=== PATIENT | female | born 1990 | race Caucasian/White ===

== ENCOUNTER → 2017-08-05 | Outpatient (CLI) | payer BC, MEDICAID ==
[~2017-08-05] MED LIST: ACHD5005 PO; ACHYD1T PO; CLC500CT PO; DCS100C PO; IBP600T1 PO; IBP800T PO; PREN1TAB14 PO
--- NOTE | 2017-08-05 16:08 | Diagnostic Imaging Report ---
INDICATION: survey. TECHNIQUE: Multiple real-time grayscale images were obtained over the gravid uterus. COMPARISON: None FINDINGS: heart rate is 135 beats per minute. The placenta is fundal and posterior. No placenta previa. Adequate amniotic fluid is seen. The lower uterine segments demonstrate closed cervix which appear to be approximately 4 cm in length. The maternal adnexa are obscured by bowel gas. The anatomy demonstrates unremarkable appearance of the posterior fossa, lateral ventricles, urinary bladder, two umbilical arteries, stomach, the upper spine. The mid and lower spine and the four-chamber view are not optimally visualized. No hydronephrosis or cystic renal masses seen in the level of the kidneys. Biometrical measurements are as follows: Biparietal 5.31 cm, age 22 weeks 1 days. Head circumference 19.43 cm, age 21 weeks 5 days. Abdominal circumference 16.42 cm, age 21 weeks 4 days. Femur length 3.63 cm, age 21 weeks 4 days. Sonographic estimate age: 21 weeks 6 days. Sonographic estimated date of delivery: 12-10-17. Estimated Weight: 431 gm (+/- 63 gm). LMP percentile: 22%. heart rate: 135 beats per minute. number: 1 of 1. IMPRESSION: Followup within 2 weeks is suggested to reevaluate the spine and four-chamber view, not well seen due to position. Dictated by: Dictated on workstation # [id number]
== END ==
LOC: RAD 10:42
PROVIDERS: ATTEND Obstetrics & Gynecology
DX: Z34.92 Encounter for supervision of normal pregnancy, unspecified, second trimester (principal); Z3A.21 21 weeks gestation of pregnancy
CPT/HCPCS: 76805

== ENCOUNTER → 2017-09-08 | Outpatient (CLI) | payer BC ==
--- NOTE | 2017-09-08 11:17 | Diagnostic Imaging Report ---
TECHNIQUE: Multiple real-time grayscale images were obtained over the gravid uterus. COMPARISON: None INDICATION: Anatomical survey. FINDINGS: There is a single living intrauterine in a cephalic presentation. There is a normal volume of amniotic fluid. Heart rate is 127 beats per minute and regular. Placenta is posterior. There is no previa. 4 chambered heart was visualized and normal. Spine was visualized and normal. IMPRESSION: Unremarkable limited ultrasound of a 26 week 6 day gestation. Biometrical measurements are as follows: Biparietal cm, age weeks days. Head circumference cm, age weeks days. Abdominal circumference cm, age weeks days. Femur length cm, age weeks days. Sonographic estimate age: weeks days. Sonographic estimated date of delivery: . Estimated Weight: gm (+/- gm). LMP percentile: %. heart rate: beats per minute. number: of . IMPRESSION: Dictated by: Dictated on workstation # [id number]
== END ==
LOC: RAD 10:18
PROVIDERS: ATTEND Obstetrics & Gynecology
DX: Z36.89 Encounter for other specified antenatal screening (principal); Z3A.26 26 weeks gestation of pregnancy
CPT/HCPCS: 76816

== ENCOUNTER → 2017-09-25 | Outpatient (CLI) | payer BC | LOC: RAD 14:39 | PROVIDERS: ATTEND Obstetrics & Gynecology | DX: Z53.8 Procedure and treatment not carried out for other reasons (principal) ==

== ENCOUNTER 2017-12-11 08:28 | Inpatient (IN) | payer BC, MEDICAID ==
[~2017-12-11] VITALS: Ht 160 cm; Wt 83.0 kg
[2017-12-11] VITALS (16 sets, daily range): BP systolic 102–138; BP diastolic 56–73
[2017-12-11 09:43] LABS: BILIRUBIN,URINE NEGATIVE (NEGATIVE); CLARITY,URINE CLEAR; COLOR,URINE YELLOW; GLUCOSE, URINE (UA) NEGATIVE (NEGATIVE); KETONES,URINE NEGATIVE (NEGATIVE); LEUKOCYTE ESTERASE ,URINE 2+ (NEGATIVE); NITRITE,URINE NEGATIVE (NEGATIVE); PH,URINE 6.5 (5-9); PROTEIN,URINE NEGATIVE (NEGATIVE); UROBILINOGEN,URINE NORMAL (NORMAL)
[2017-12-11 09:44] LABS: BASOPHILS % (AUTO) 0 % (0-10); EOSINOPHILS # (AUTO) 0.1 10^3/uL (0.0-0.3); EOSINOPHILS % (AUTO) 1 % (0-10); HEMATOCRIT 36 % (35-52); HEMOGLOBIN 12.1 G/DL (11.5-16.0); LYMPHOCYTES # (AUTO) 1.5 X 10^3 (1.0-4.0); LYMPHOCYTES % (AUTO) 16 % (12-44); MEAN CORPUSCULAR HEMOGLOBIN 27 PG (25-34); MEAN CORPUSCULAR HGB CONC 33 G/DL (32-36); MEAN CORPUSCULAR VOLUME 80 FL (80-99); MONOCYTES # (AUTO) 0.8 X 10^3 (0.0-1.0); MONOCYTES % (AUTO) 9 % (0-12); NEUTROPHILS % (AUTO) 74 % (42-75); PLATELET COUNT 170 10^3/uL (130-400); RED BLOOD COUNT 4.53 10^6/uL (4.35-5.85); RED CELL DISTRIBUTION WIDTH 19.8 % (10.0-14.5); WHITE BLOOD COUNT 9.5 10^3/uL (4.3-11.0)
[2017-12-11] MEDS ORDERED: MINERAL OIL CONCENTRATE 99.9% 15 ML UDC TOP PRN (09:45)
[2017-12-11 09:52] LABS: BACTERIA,URINE FEW /HPF
[2017-12-11] MEDS: D5 LR IV SOLUTION 1,000 ML IV SCH ×2 (10:50→18:13)
[2017-12-11] MEDS ORDERED: CATHETER FLUSH 10 ML SYR IV SCH ×2 (14:00→22:00)
[2017-12-11] MEDS ORDERED: OXYTOCIN/NORMAL SALINE 500 ML IV ONE (15:05)
[2017-12-11] MEDS ORDERED: OXYTOCIN/NORMAL SALINE 500 ML IV SCH (16:01)
--- NOTE | 2017-12-11 16:03 | OB Labor & Delivery Record ---
Vag Delivery Note Vag Delivery Note Date of Delivery: 12/11/17 Preoperative Diagnosis: Vickie Alatorre is a 25 /Para 3 /2 ,Gestational Age 40 2/7 weeks induction for post maturity. Postoperative Diagnosis: Same Surgeon: LITO CARNEY Anesthesia: none Delivery Type: vaginal Findings: Viablemale infant, apgars 8/9, weight 7# Lacerations: 1st degree Intact placenta with 3 vessel cord. No nuchal cord, body cord or shoulder dystocia Estimated Blood Loss: 250 ml Complications: None Condition: Stable Description of Procedure: The patient is a 25 /Para 3 /2 ,Gestational Age (wks)40 2/7 weeks induction for post maturity. She was admitted and informed consent was obtained. Her labor course was remarkable for AROM. She progressed to complete dilatation and began to push. She was then set up for delivery. The infant's head was delivered atraumatically in the OA position. The shoulders and remainder of the 's body were then delivered without difficulty. Upon delivery, the head was held below the level of the perineum and the mouth and nares were bulb suctioned. The cord was doubly clamped and cut and the infant was handed off to the pediatric staff. An intact placenta with 3-vessel cord delivered via Nicko and there was found to be minimal bleeding.~ Vigorous fundal massage was performed and the fundus was found to be firm. IV oxytocin was given. Examination of the vagina and perineum revealed no laceration. Following the delivery, sponge, instrument and needle counts were correct. Mom and baby were both in stable condition in the labor suite. Vitals - Labs Vital Signs - I&O Vital Signs Date Time Temp Pulse Resp B/P (MAP) Pulse Ox O2 Delivery O2 Flow Rate FiO2 12/11/17 14:00 97.9 12/11/17 13:30 12/11/17 13:00 12/11/17 12:30 98.2 Room Air 12/11/17 12:00 Room Air 12/11/17 11:40 80 132/61 (84) Room Air 12/11/17 11:30 Room Air 12/11/17 11:00 97.5 67 18 112/58 (76) Room Air 12/11/17 10:30 Room Air 12/11/17 10:00 Room Air 12/11/17 09:30 Room Air 12/11/17 09:00 75 18 118/68 (85) Room Air Labs Laboratory Tests 12/11/17 08:50: White Blood Count 9.5, Red Blood Count 4.53, Hemoglobin 12.1, Hematocrit 36, Mean Corpuscular Volume 80, Mean Corpuscular Hemoglobin 27, Mean Corpuscular Hemoglobin Concent 33, Red Cell Distribution Width 19.8H, Platelet Count 170, Mean Platelet Volume 10.0, Neutrophils (%) (Auto) 74, Lymphocytes (%) (Auto) 16 , Monocytes (%) (Auto) 9, Eosinophils (%) (Auto) 1, Basophils (%) (Auto) 0, Neutrophils # (Auto) 7.0, Lymphocytes # (Auto) 1.5, Monocytes # (Auto) 0.8, Eosinophils # (Auto) 0.1, Basophils # (Auto) 0.0, Urine Color YELLOW, Urine Clarity CLEAR, Urine pH 6.5, Urine Specific [place] 1.020, Urine Protein NEGATIVE, Urine Glucose (UA) NEGATIVE, Urine Ketones NEGATIVE, Urine Nitrite NEGATIVE, Urine Bilirubin NEGATIVE, Urine Urobilinogen NORMAL, Urine Leukocyte Esterase 2+H, Urine RBC (Auto) NEGATIVE, Urine RBC NONE, Urine WBC 2-5, Urine Squamous Epithelial Cells 2-5, Urine Crystals NONE, Urine Bacteria FEWH, Urine Casts NONE, Urine Mucus NEGATIVE, Urine Culture Indicated YES LITO CARNEY DO Dec 11, 2017 16:03
[2017-12-11] MEDS ORDERED: DOCU100C37 PO (16:09)
[2017-12-11] MEDS ORDERED: IBUP-1773 PO (16:09)
--- NOTE | 2017-12-11 16:10 | Discharge Inst-Women's Service ---
Discharge Inst-Women's Serv Depart Medication/Instructions New, Converted or Re-Newed RX: RX on Chart Final Diagnosis post maturity vaginal delivery Consults/Follow Up Additional Follow Up: Yes Activity Activity: Activity as Tolerated Driving Instructions: You May Drive NO SMOKING: NO SMOKING Nothing Inside Vagina: No Douching, No Sparkill, No Tampons Diet Discharge Diet: No Restrictions Symptoms to Report to : Swelling Increased, Bleeding Excessive, Pain Increased, Fever Over 101 Degrees F, Vaginal Bleeding Increase, Cramps in Feet or Legs, Vaginal Discharge Foul For Any Problems or Questions: Contact Your Physician Skin/Wound Care Bathing Instructions: LITO Macedo DO Dec 11, 2017 16:10
[2017-12-11] MEDS ORDERED: TETANUS,DIPTH,PERTUSS P/F (BOOSTRIX) 0.5 ML VIAL IM ONE (16:15)
[2017-12-11] MEDS ORDERED: ACETAMINOPHEN 500 MG TAB (TYLENOL) PO PRN (16:15)
[2017-12-11] MEDS ORDERED: DIBUCAINE (NUPERCAINAL) 1% OINT 30 GM TOP PRN (16:15)
[2017-12-11] MEDS ORDERED: WITCH HAZEL(TUCKS) 40 EA JAR TOP PRN (16:15)
[2017-12-11] MEDS ORDERED: MEASLES,MUMPS,RUBELLA 1 EA INJ SQ ONE (16:15)
[2017-12-11] MEDS ORDERED: BENZOCAINE/MENTHOL (DERMOPLAST) 56 ML CAN TP PRN (16:15)
[2017-12-11] MEDS: IBUPROFEN 600 MG (MOTRIN) TAB PO SCH (17:27)
[2017-12-11] MEDS ORDERED: FERR-84 PO (17:34)
[2017-12-11] MEDS: DOCUSATE SODIUM 100 MG (COLACE) CAP PO SCH (22:10)
[2017-12-12 00:25] VITALS: BP 90/50
[2017-12-12] MEDS: IBUPROFEN 600 MG (MOTRIN) TAB PO SCH ×3 (00:27→13:05)
[2017-12-12 04:10] VITALS: BP 107/44
[2017-12-12 06:46] LABS: BASOPHILS % (AUTO) 0 % (0-10); EOSINOPHILS # (AUTO) 0.1 10^3/uL (0.0-0.3); EOSINOPHILS % (AUTO) 1 % (0-10); HEMATOCRIT 35 % (35-52); HEMOGLOBIN 11.8 G/DL (11.5-16.0); LYMPHOCYTES % (AUTO) 19 % (12-44); MEAN CORPUSCULAR HEMOGLOBIN 27 PG (25-34); MEAN CORPUSCULAR HGB CONC 34 G/DL (32-36); MEAN CORPUSCULAR VOLUME 81 FL (80-99); MEAN PLATELET VOLUME 10.1 FL (7.4-10.4); MONOCYTES # (AUTO) 0.7 X 10^3 (0.0-1.0); MONOCYTES % (AUTO) 7 % (0-12); NEUTROPHILS # (AUTO) 7.8 X 10^3 (1.8-7.8); NEUTROPHILS % (AUTO) 73 % (42-75); PLATELET COUNT 172 10^3/uL (130-400); RED BLOOD COUNT 4.32 10^6/uL (4.35-5.85); RED CELL DISTRIBUTION WIDTH 20.4 % (10.0-14.5); WHITE BLOOD COUNT 10.7 10^3/uL (4.3-11.0)
[2017-12-12] MEDS ORDERED: PRENATAL VITAMIN 1 EA TAB PO SCH (07:00)
[2017-12-12] MEDS ORDERED: FERROUS SULF 325 MG (IRON) TAB PO SCH (08:00)
[2017-12-12 09:00] VITALS: BP 107/67
[2017-12-12] MEDS: DOCUSATE SODIUM 100 MG (COLACE) CAP PO SCH (09:34)
--- NOTE | 2017-12-12 11:12 | Postpartum Progress Note ---
Note Note Day # 1 Subjective: Patient is without complaints. Ambulating, voiding. Tolerating a regular diet without nausea or vomiting. Normal lochia. Pain is well controlled with oral pain medications. breast feeding. Objective: Laboratory Tests Test 12/12/17 06:34 Range/Units White Blood Count 10.7 4.3-11.0 10^3/uL Red Blood Count 4.32 L 4.35-5.85 10^6/uL Hemoglobin 11.8 11.5-16.0 G/DL Hematocrit 35 35-52 % Mean Corpuscular Volume 81 80-99 FL Mean Corpuscular Hemoglobin 27 25-34 PG Mean Corpuscular Hemoglobin Concent 34 32-36 G/DL Red Cell Distribution Width 20.4 H 10.0-14.5 % Platelet Count 172 130-400 10^3/uL Mean Platelet Volume 10.1 7.4-10.4 FL Neutrophils (%) (Auto) 73 42-75 % Lymphocytes (%) (Auto) 19 12-44 % Monocytes (%) (Auto) 7 0-12 % Eosinophils (%) (Auto) 1 0-10 % Basophils (%) (Auto) 0 0-10 % Neutrophils # (Auto) 7.8 1.8-7.8 X 10^3 Lymphocytes # (Auto) 2.0 1.0-4.0 X 10^3 Monocytes # (Auto) 0.7 0.0-1.0 X 10^3 Eosinophils # (Auto) 0.1 0.0-0.3 10^3/uL Basophils # (Auto) 0.0 0.0-0.1 10^3/uL 12/12/17 12/12/17 00:25 04:10 Temp 98.0 98.5 Pulse 75 71 Resp 18 18 B/P (MAP) 90/50 (63) 107/44 (65) Pulse Ox 98 98 O2 Delivery Room Air Room Air 12/12/17 00:00 Intake Total 1950 ml Balance 1950 ml Physical Exam: General - Alert and oriented, no apparent distress Abdomen - Soft, appropriately tender to palpation, non-distended, fundus firm at umbilicus Extremities - no edema, negative Joshua's bilaterally Assessment: 1. post- day # , status post spontaneous vaginal delivery. Recovering well, hemodynamically stable Plan: Routine care. Encourage breast feeding. Encourage ambulation. Ferrous sulfate supplementation. Plan for discharge today Vitals - Labs Vital Signs - I&O Vital Signs Date Time Temp Pulse Resp B/P (MAP) Pulse Ox O2 Delivery O2 Flow Rate FiO2 12/12/17 04:10 98.5 71 18 107/44 (65) 98 Room Air 12/12/17 00:25 98.0 75 18 90/50 (63) 98 Room Air 12/11/17 19:45 99.0 76 18 102/56 (71) 99 Room Air 12/11/17 18:06 99.3 75 115/60 (78) 12/11/17 17:51 81 111/59 (76) 12/11/17 17:36 87 110/57 (74) 12/11/17 17:24 99.8 79 18 116/58 (77) 12/11/17 17:06 95 18 130/63 (85) 12/11/17 16:51 99.0 94 18 119/69 (86) 12/11/17 16:36 105 18 138/73 (94) 12/11/17 16:00 82 123/70 (87) 12/11/17 15:30 75 117/65 (82) 12/11/17 15:00 71 18 117/60 (79) 12/11/17 14:30 73 119/67 (84) 12/11/17 14:00 95 18 104/63 (77) 12/11/17 14:00 97.9 12/11/17 13:30 12/11/17 13:00 12/11/17 12:30 98.2 Room Air 12/11/17 12:00 Room Air 12/11/17 11:40 80 132/61 (84) Room Air 12/11/17 11:30 Room Air I & O 12/12/17 07:00 Intake Total 1950 ml Balance 1950 ml Labs Laboratory Tests 12/12/17 06:34: White Blood Count 10.7, Red Blood Count 4.32L, Hemoglobin 11.8, Hematocrit 35, Mean Corpuscular Volume 81, Mean Corpuscular Hemoglobin 27, Mean Corpuscular Hemoglobin Concent 34, Red Cell Distribution Width 20.4H, Platelet Count 172, Mean Platelet Volume 10.1, Neutrophils (%) (Auto) 73, Lymphocytes (%) (Auto) 19 , Monocytes (%) (Auto) 7, Eosinophils (%) (Auto) 1, Basophils (%) (Auto) 0, Neutrophils # (Auto) 7.8, Lymphocytes # (Auto) 2.0, Monocytes # (Auto) 0.7, Eosinophils # (Auto) 0.1, Basophils # (Auto) 0.0 Microbiology 12/11/17 Urine Culture - Preliminary, Resulted LITO CARNEY DO Dec 12, 2017 11:12
[2017-12-12 17:33] VITALS: BP 111/68
--- OUTSIDE RECORDS SUMMARY | 2017-12-13 07:10 | XMS REPORT | Continuity of Care Document ---
Demographics Preferred Language Unknown Marital Status Unknown Buddhism Affiliation Unknown Race Unknown Ethnic Group Unknown Author Author [facility] Address Unknown Phone Unavailable Allergies Active Description Code Type Severity Reaction Onset Reported/Identified Relationship to Patient Clinical Status Yes No Known Drug Allergies [id number] Drug Allergy Unknown N/A 03/04/2013 Medications There is no data. Problems Date Dx Coded Attending Type Code Diagnosis Diagnosed By 05/17/2010 V25.40 CONTRACEPTIVE SURVEILLANCE UNSPECIFIED 08/19/2012 V72.42 TEST POSITIVE RESULT 03/06/2013 YURI LIMON, SCARLETT Hernández Ot 660.41 SHOULDER DYSTOCIA-DELIV 03/06/2013 YURI LIMON, SCARLETT Hernández Ot V06.1 [id number], COMBINED [ 03/06/2013 SCARLETT WELCH MD Ot V06.4 [id number] 03/06/2013 SCARLETT WELCH MD Ot V27.0 DELIVER-SINGLE LIVEBORN 01/21/2014 LITO CARNEY DO Ot 656.51 POOR GROWTH-DELIV 01/21/2014 LITO CARNEY DO Ot 663.31 CORD ENTANGLE NEC-DELIV 01/21/2014 LITO CARNEY DO Ot V27.0 DELIVER-SINGLE LIVEBORN 08/19/2017 LITO CARNEY DO Ot Z34.92 ENCNTR FOR SUPRVSN OF NORMAL PREG, UNSP, 08/19/2017 LITO CARNEY DO Ot Z3A.21 21 WEEKS GESTATION OF 09/08/2017 LITO CARNEY DO Ot Z34.92 ENCNTR FOR SUPRVSN OF NORMAL PREG, UNSP, 09/08/2017 LITO CARNEY DO Ot Z3A.21 21 WEEKS GESTATION OF 09/09/2017 LITO CARNEY DO Ot Z36.89 ENCOUNTER FOR OTHER SPECIFIED 09/09/2017 LITO CARNEY DO Ot Z3A.26 26 WEEKS GESTATION OF 09/17/2017 LITO CARNEY DO Ot Z36.89 ENCOUNTER FOR OTHER SPECIFIED 09/17/2017 LITO CARNEY DO Ot Z3A.26 26 WEEKS GESTATION OF 09/29/2017 LITO CARNEY DO Ot Z53.8 PROCEDURE AND TREATMENT NOT CARRIED OUT 12/11/2017 LITO CARNEY DO Ot Z34.92 ENCNTR FOR SUPRVSN OF NORMAL PREG, UNSP, 12/11/2017 LITO CARNEY DO Ot Z3A.21 21 WEEKS GESTATION OF 12/11/2017 LITO CARNEY DO Ot Z36.89 ENCOUNTER FOR OTHER SPECIFIED 12/11/2017 LITO CARNEY DO Ot Z3A.26 26 WEEKS GESTATION OF 12/11/2017 LITO CARNEY DO Ot Z53.8 PROCEDURE AND TREATMENT NOT CARRIED OUT Procedures Code [place] [address] URINE TEST (IN- HOUSE) 08/19/2012 73.6 EPISIOTOMY 03/04/2013 73.59 MANUAL ASSIST DELIV NEC 01/20/2014 Results There is no data. Encounters ACCT No. Visit Date/Time Discharge Status Pt. Type Provider Facility Loc./Unit Complaint [id number] 08/19/2012 12:01:00 08/19/2012 23:59:59 CLS Outpatient [id number] 09/25/2017 14:39:00 09/25/2017 23:59:59 CLS Outpatient CARNEY LITO Clarke [facility] RAD Z36.2 EVALUATE ANATOMY [id number] 09/08/2017 10:18:00 09/08/2017 23:59:59 CLS Outpatient CARNEYShaniqua GARCIA LITO Clarke [facility] RAD Z36.2 EVALUATE ANATOMY [id number] 08/17/2017 13:00:00 08/17/2017 23:59:59 CLS Preadmit LITO CARNEY DO [facility] RAD EVALUATE SCAN [id number] 08/05/2017 10:42:00 08/05/2017 23:59:59 CLS Outpatient CARNEYShaniqua GARCIA LITO C [facility] RAD SURVEY [id number] 01/19/2014 15:42:00 01/21/2014 13:20:00 DIS Inpatient LITO CARNEY DO [facility] WS SPONTANEOUS RUPTURE OF MEMBRANES [id number] 03/04/2013 13:26:00 03/06/2013 10:40:00 DIS Inpatient YURI LIMON, SCARLETT Hernández [facility] WS LABOR [id number] 12/11/2017 08:28:00 ACT Inpatient LITO CARNEY DO [facility] LDRP INDUCTION.
== END 2017-12-12 18:15 | disposition home or self-care (01) | DRG 775 ==
LOC: LDRP 08:28
PROVIDERS: ADMIT Obstetrics & Gynecology; ATTEND Obstetrics & Gynecology
PROC: 10E0XZZ Delivery of Products of Conception, External Approach (ICD-10-PCS; principal; 2017-12-11)
DX: O48.0 Post-term pregnancy (principal); Z3A.40 40 weeks gestation of pregnancy; Z37.0 Single live birth
CPT/HCPCS: 36415; 81000; 85025; 86850; 86900; 86901; 87088

== ENCOUNTER → 2022-08-07 | Outpatient (CLI) | payer BC, MEDICAID ==
[~2022-08-07] MED LIST changes: +DOCU100C37 PO; +FERR-84 PO; +IBUP-1773 PO
--- NOTE | 2022-08-07 11:46 | Diagnostic Imaging Report ---
INDICATION: Evaluate growth and biophysical profile. TECHNIQUE: Multiple real-time grayscale images were obtained over the gravid uterus. COMPARISON: None FINDINGS: There is a single live fetus in a cephalic presentation. heart rate was recorded 142 bpm. Placenta is anterior. No previa is identified. Amniotic fluid volume index is 9.9 cm. Cervical length is 2.8 cm. A biophysical profile score is normal at 8 out of 8. Biometrical measurements are as follows: Biparietal 7.99 cm, age 32 weeks 1 days. Head circumference 30.83 cm, age 34 weeks 3 days. Abdominal circumference 26.49 cm, age 30 weeks 5 days. Femur length 6.14 cm, age 32 weeks 0 days. Sonographic estimate age: 32 weeks 3 days. Sonographic estimated date of delivery: 09/29/2022. Estimated Weight: 1777 gm (+/- 260 gm). LMP percentile: 31%. heart rate: 142 beats per minute. number: 1 of 1. IMPRESSION: 1, Single live IUP 32-33 weeks gestational age with estimated date of confinement sonographically of 09/29/2022. 2. Normal biophysical profile score of 8 out of 8. Dictated by: Dictated on workstation # [id number]
== END ==
LOC: RAD 09:35
PROVIDERS: ATTEND Obstetrics & Gynecology
DX: O26.93 Pregnancy related conditions, unspecified, third trimester (principal); Z3A.32 32 weeks gestation of pregnancy
CPT/HCPCS: 76805; 76819

== ENCOUNTER 2022-09-25 14:19 | Outpatient (CLI) | payer BC ==
[~2022-09-25] VITALS: Ht 160 cm; Wt 85.6 kg
[2022-09-25 14:10] VITALS: BP 120/62
--- NOTE | 2022-09-26 08:37 | Physician Query-Final Dx ---
HOMERO09/26/22 0837: Clinic Account Progress/Dx Physician Query: Please give diagnosis Please include # weeks gestation Date of Service Sep 25, 2022 at 14:19 VALENTINO HARPER DO 09/29/22 0721: Clinic Account Progress/Dx DIAGNOSIS: Diagnosis 38 week IUP Pelvic pressure Irregular contractions HOMERO,AugSep 26, 2022 08:37 VALENTINO HARPER DO Sep 29, 2022 07:21
== END 2022-09-25 16:05 | disposition home or self-care (01) ==
LOC: WSo 14:19 → LDRP 14:19 → WSo 16:05
PROVIDERS: ATTEND Obstetrics & Gynecology
DX: O47.1 False labor at or after 37 completed weeks of gestation (principal); O26.893 Other specified pregnancy related conditions, third trimester; R10.2 Pelvic and perineal pain; Z3A.38 38 weeks gestation of pregnancy
CPT/HCPCS: 99213

== ENCOUNTER → 2022-09-25 | Outpatient (CLI) | payer BC | LOC: WSo 14:08 | PROVIDERS: ATTEND Obstetrics & Gynecology | DX: O62.9 Abnormality of forces of labor, unspecified (principal); O26.893 Other specified pregnancy related conditions, third trimester; R10.2 Pelvic and perineal pain; Z3A.38 38 weeks gestation of pregnancy ==

== ENCOUNTER 2022-10-02 14:00 | Inpatient (IN) | payer BC ==
[2022-10-02] VITALS (7 sets, daily range): BP systolic 106–142; BP diastolic 55–66
[2022-10-02] MEDS ORDERED: D5 LR IV SOLUTION 1,000 ML IV SCH (14:15)
[2022-10-02] MEDS ORDERED: LIDOCAINE/EPI 2% 1:200,00 (XYLOCAINE) 10 ML VIAL INJ PRN (14:15)
[2022-10-02 14:24] LABS: BASOPHILS # (AUTO) 0.1 10^3/uL (0.0-0.1); BASOPHILS % (AUTO) 0 % (0-10); EOSINOPHILS # (AUTO) 0.1 10^3/uL (0.0-0.3); EOSINOPHILS % (AUTO) 1 % (0-10); HEMATOCRIT 39 % (35-52); HEMOGLOBIN 13.6 g/dL (11.5-16.0); LYMPHOCYTES # (AUTO) 1.5 10^3/uL (1.0-4.0); LYMPHOCYTES % (AUTO) 14 % (12-44); MEAN CORPUSCULAR HEMOGLOBIN 29 pg (25-34); MEAN CORPUSCULAR HGB CONC 35 g/dL (32-36); MEAN CORPUSCULAR VOLUME 85 fL (80-99); MEAN PLATELET VOLUME 10.4 fL (9.0-12.2); MONOCYTES # (AUTO) 0.7 10^3/uL (0.0-1.0); MONOCYTES % (AUTO) 6 % (0-12); NEUTROPHILS # (AUTO) 8.8 10^3/uL (1.8-7.8); NEUTROPHILS % (AUTO) 79 % (42-75); PLATELET COUNT 174 10^3/uL (130-400); WHITE BLOOD COUNT 11.2 10^3/uL (4.3-11.0)
[2022-10-02 14:26] LABS: BILIRUBIN,URINE NEGATIVE (NEGATIVE); CLARITY,URINE SL CLOUDY; COLOR,URINE YELLOW; GLUCOSE, URINE (UA) NEGATIVE (NEGATIVE); KETONES,URINE TRACE (NEGATIVE); LEUKOCYTE ESTERASE ,URINE NEGATIVE (NEGATIVE); NITRITE,URINE NEGATIVE (NEGATIVE); PROTEIN,URINE NEGATIVE (NEGATIVE)
[2022-10-02 14:34] LABS: BACTERIA,URINE NEGATIVE /HPF
[2022-10-02] MEDS ORDERED: PYRI25TA3 PO (16:11)
[2022-10-02] MEDS ORDERED: OMEG-82 PO (16:11)
[2022-10-02] MEDS ORDERED: OXYTOCIN PRE-MIX DRIP 500 ML IV ONE ×2 (16:30→18:48)
[2022-10-02] MEDS ORDERED: LIDOCAINE 1% INJ 10 ML VIAL ONE ×2 (16:53→16:54)
[2022-10-02] MEDS ORDERED: LIDOCAINE 1% INJ 10 ML VIAL INJ ONE (17:15)
--- NOTE | 2022-10-02 17:31 | History & Physical-OB/GYN ---
JESUS SAN 10/02/221730: OB - Chief Complaint & HPI Date/Time Date of Admission: Date of Admission: Oct 02, 2022 at 14:00 Date seen by a Provider: Oct 02, 2022 Time Seen by a Provider: 17:00 Chief Complaint/History OB-Reason for Admission/Chief: Onset of Labor Expected Date of Delivery: Oct 04, 2022 Gestational Age in Weeks: 39 Gestational Age in Days: 5 Allergies and Home Medications Allergies Coded Allergies: gluten (Verified Allergy, Unknown, 10/02/22) Patient Home Medication List Home Medication List Reviewed: Yes Ferrous Sulfate (Iron) 325 Mg Tablet, 325 MG PO DAILY, (Reported) Entered as Reported by: JALEESA IGNACIO on 12/11/171733 Last Action: Last Taken Edited [place]-3S/Dha/Epa/Fish Oil/D3 (Fish Oil + D3 Softgel) 360 Mg-1,200 Mg-1,000 Unit Capsule, 1 EACH PO DAILY, (Reported) Entered as Reported by: KYMBERLY WINTERS on 10/02/221610 Last Action: New Order Vits W-Ca,Fe,Fa(<1MG) ( Vitamins) 1 Each Tablet, 1 EACH PO DAILY, (Reported) Entered as Reported by: SKY ANDERSON on 03/04/131543 Last Action: Last Taken Edited Pyridoxine HCl (Vitamin B-6) 25 Mg Tablet, 25 MG PO DAILY, (Reported) Entered as Reported by: KYMBERLY WINTERS on 10/02/221610 Last Action: New Order Discontinued Medications Calcium Carbonate (Tums) 500 Mg Tab.chew, 750 MG PO PRN, (Reported) Discontinued Reason: No Longer Taking Entered as Reported by: SKY ANDERSON on 03/04/131543 Docusate Sodium (Docusate Sodium) 100 Mg Capsule, 100 MG PO BID Discontinued Reason: No Longer Taking Prescribed by: LITO CARNEY on 12/11/17 160 Ibuprofen (Ibuprofen) 600 Mg Tablet, 600 MG PO Q6H Discontinued Reason: No Longer Taking Prescribed by: LITO CARNEY on 12/11/171608 OB - History Hx of Present Care: Yes Obstetrical Complications: None Medical Complications: None Obstetrical History Hx Termination: No Hx Multiple Gestation: No Hx Stillbirth: No Hx Complication: No Hx Induced Hypertens: No Hx Maternal Gestational Diabet: No Delivery History Hx Dystocia: No Hx Large For Gestational Age I: No Hx Small for Gestational Age I: Yes Hx Section: No Hx Vaginal Delivery Post C-Sec: No Hx Blood Disorders: No Adverse Rxn to Tranfusion: No Social History/Family History 2nd Hand Smoke Exposure: No Immunizations Influenza Vaccine Up-to-Date: No; Not Current COVID19 Vaccine Primary Operator: Recite Me Hepatitis A: No Hepatitis B: No Tetanus Booster (TDap): Less than 5yrs OB - Admission Exam Physical Exam Vitals: Vital Signs 10/02/22 13:50 Temp 37.3 Pulse 101 Resp 18 Pulse Ox 98 O2 Delivery Room Air Heart: Rhythm Normal Lungs: Clear Abdomen: Gravid Cervical Dilatation: 7cm Effacement: 75% Station: 0 Membranes: Intact Heart Rate: 130's Decelerations: No Decelerations Labs Laboratory Tests Test 10/02/22 14:00 10/02/22 14:10 Range/Units Urine Color YELLOW Urine Clarity SL CLOUDY Urine pH 6.0 5-9 Urine Specific [place] 1.025 H 1.016-1.022 Urine Protein NEGATIVE NEGATIVE Urine Glucose (UA) NEGATIVE NEGATIVE Urine Ketones TRACE H NEGATIVE Urine Nitrite NEGATIVE NEGATIVE Urine Bilirubin NEGATIVE NEGATIVE Urine Urobilinogen 0.2 < = 1.0 MG/DL Urine Leukocyte Esterase NEGATIVE NEGATIVE Urine RBC (Auto) NEGATIVE NEGATIVE Urine RBC NONE /HPF Urine WBC NONE /HPF Urine Squamous Epithelial Cells NONE /HPF Urine Crystals NONE /LPF Urine Bacteria NEGATIVE /HPF Urine Casts NONE /LPF Urine Mucus NEGATIVE /LPF Urine Culture Indicated NO White Blood Count 11.2 H 4.3-11.0 10^3/uL Red Blood Count 4.63 3.80-5.11 10^6/uL Hemoglobin 13.6 11.5-16.0 g/dL Hematocrit 39 35-52 % Mean Corpuscular Volume 85 80-99 fL Mean Corpuscular Hemoglobin 29 25-34 pg Mean Corpuscular Hemoglobin Concent 35 32-36 g/dL Red Cell Distribution Width 13.6 10.0-14.5 % Platelet Count 174 130-400 10^3/uL Mean Platelet Volume 10.4 9.0-12.2 fL Immature Granulocyte % (Auto) 1 % Neutrophils (%) (Auto) 79 H 42-75 % Lymphocytes (%) (Auto) 14 12-44 % Monocytes (%) (Auto) 6 0-12 % Eosinophils (%) (Auto) 1 0-10 % Basophils (%) (Auto) 0 0-10 % Neutrophils # (Auto) 8.8 H 1.8-7.8 10^3/uL Lymphocytes # (Auto) 1.5 1.0-4.0 10^3/uL Monocytes # (Auto) 0.7 0.0-1.0 10^3/uL Eosinophils # (Auto) 0.1 0.0-0.3 10^3/uL Basophils # (Auto) 0.1 0.0-0.1 10^3/uL Immature Granulocyte # (Auto) 0.1 0.0-0.1 10^3/uL OB - Assessment/Plan/Diagnosis Assessment Assessment: active labor Admission Dx 32 yo at 39.5 wga Active labor GBS negative Admission Status: Inpatient Order (span 2 midnights) Reason for Inpatient Admission: Active labor at 39 weeks Plan Plan: Expectant Management (AROM) Supervisory-Addendum Brief Verification & Attestation Participated in pt care: history, MDM, physical Personally performed: history, MDM Care discussed with: Medical Student Procedures: n/a Results interpretation: Verified all documentation JOCE SAMUELS DO 10/02/22 1838: Allergies and Home Medications Allergies Coded Allergies: gluten (Verified Allergy, Unknown, 10/02/22) Patient Home Medication List Ferrous Sulfate (Iron) 325 Mg Tablet, 325 MG PO DAILY, (Reported) Entered as Reported by: JALEESA IGNACIO on 12/11/17 1734 Last Action: Last Taken Edited [place]-3S/Dha/Epa/Fish Oil/D3 (Fish Oil + D3 Softgel) 360 Mg-1,200 Mg-1,000 Unit Capsule, 1 EACH PO DAILY, (Reported) Entered as Reported by: KYMBERLY WINTERS on 10/02/22 1611 Last Action: New Order Vits W-Ca,Fe,Fa(<1MG) ( Vitamins) 1 Each Tablet, 1 EACH PO DAILY, (Reported) Entered as Reported by: SKY ANDERSON on 03/04/13 1544 Last Action: Last Taken Edited Pyridoxine HCl (Vitamin B-6) 25 Mg Tablet, 25 MG PO DAILY, (Reported) Entered as Reported by: KYMBERLY WINTERS on 10/02/22 1611 Last Action: New Order Discontinued Medications Calcium Carbonate (Tums) 500 Mg Tab.chew, 750 MG PO PRN, (Reported) Discontinued Reason: No Longer Taking Entered as Reported by: SKY ANDERSON on 03/04/13 1544 Docusate Sodium (Docusate Sodium) 100 Mg Capsule, 100 MG PO BID Discontinued Reason: No Longer Taking Prescribed by: LITO CARNEY on 12/11/17 1609 Ibuprofen (Ibuprofen) 600 Mg Tablet, 600 MG PO Q6H Discontinued Reason: No Longer Taking Prescribed by: LITO CARNEY on 12/11/17 1609 OB - History Patient Past Medical History nc Supervisory-Addendum Brief Verification & Attestation Verification and Attestation of Medical Student E/M Service A medical student performed and documented this service in my presence. I reviewed and verified all information documented by the medical student and made modifications to such information, when appropriate. I personally performed the physical exam and medical decision making. Joce Samuels, Oct 02, 2022,18:38 JESUS SAN Oct 02, 2022 17:31 JOCE SAMUELS DO Oct 02, 2022 18:38
--- NOTE | 2022-10-02 18:38 | OB Labor & Delivery Record ---
PADMINI FERNANDEZ 10/02/22 1838: Vag Delivery Note Vag Delivery Note Date of Delivery: 10/02/22 Preoperative Diagnosis: Vickie Alatorre is a 32 y/o 4 Para 3,Gestational Age 39.5 Postoperative Diagnosis: Same Surgeon: Dr. Samuels Tapering Machine Operator: Padmini Fernandez, MS4 Anesthesia: None Delivery Type: Findings: Viable female infant, apgars 9, 9, weight 2977 grams, 6lbs 9oz Lacerations: None Intact placenta with 3 vessel cord. No nuchal cord, body cord or shoulder dystocia Estimated Blood Loss: 350 ml Complications: None Condition: Stable Description of Procedure: The patient is a 32 year old female who presented in active labor. She was admitted and informed consent was obtained. Her labor course was unremarkable. Labor was augmented with AROM. She progressed to complete dilatation and +2 station and began to push. She was then set up for delivery. The 's head was delivered atraumatically in the ANGELIKA position. The shoulders and remainder of the infant's body were then delivered without difficulty. Upon delivery, the infant was vigorous and placed on maternal chest and the mouth and nares were bulb suctioned. After a delay cord was doubly clamped and cut and the remained on maternal chest. An intact placenta with 3-vessel cord delivered via Nicko and there was found to be minimal bleeding.~ Vigorous fundal massage was performed and the fundus was found to be firm. IV oxytocin was given. Examination of the vagina and perineum revealed no lacerations. Sponge, instrument and needle counts were correct. Mom and baby were both in stable condition in the labor suite. Vitals - Labs Vital Signs - I&O Vital Signs Date Time Temp Pulse Resp B/P (MAP) Pulse Ox O2 Delivery O2 Flow Rate FiO2 10/02/22 15:20 80 18 98 Room Air 10/02/22 13:55 37.3 101 18 120/66 (84) 98 10/02/22 13:50 37.3 101 18 98 Room Air Labs Laboratory Tests 10/02/22 14:00: Urine Color YELLOW, Urine Clarity SL CLOUDY, Urine pH 6.0, Urine Specific [place] 1.025H, Urine Protein NEGATIVE, Urine Glucose (UA) NEGATIVE, Urine Ketones TRACEH, Urine Nitrite NEGATIVE, Urine Bilirubin NEGATIVE, Urine Urobilinogen 0.2, Urine Leukocyte Esterase NEGATIVE, Urine RBC (Auto) NEGATIVE, Urine RBC NONE, Urine WBC NONE, Urine Squamous Epithelial Cells NONE, Urine Crystals NONE, Urine Bacteria NEGATIVE, Urine Casts NONE, Urine Mucus NEGATIVE, Urine Culture Indicated NO 10/02/22 14:10: White Blood Count 11.2H, Red Blood Count 4.63, Hemoglobin 13.6, Hematocrit 39, M anca Corpuscular Volume 85, Mean Corpuscular Hemoglobin 29, Mean Corpuscular Hemoglobin Concent 35, Red Cell Distribution Width 13.6, Platelet Count 174, Mean Platelet Volume 10.4, Immature Granulocyte % (Auto) 1, Neutrophils (%) (Auto) 79H, Lymphocytes (%) (Auto) 14, Monocytes (%) (Auto) 6, Eosinophils (%) (Auto) 1, Basophils (%) (Auto) 0, Neutrophils # (Auto) 8.8H, Lymphocytes # (Auto) 1.5, Monocytes # (Auto) 0.7, Eosinophils # (Auto) 0.1, Basophils # (Auto) 0.1, Immature Granulocyte # (Auto) 0.1 JOCE SAMUELS DO 10/02/22 2230: Vag Delivery Note Vag Delivery Note Verification and Attestation of Medical Student E/M Service A medical student performed and documented this service in my presence. I reviewed and verified all information documented by the medical student and made modifications to such information, when appropriate. I personally performed the physical exam and medical decision making. Joce Samuels, Oct 02, 2022,22:30 PADMINI FERNANDEZ Oct 02, 2022 18:38 JOCE SAMUELS DO Oct 02, 2022 22:30
--- NOTE | 2022-10-02 18:56 | Discharge Inst-Women's Service ---
Discharge Inst-Women's Serv Depart Medication/Instructions New, Converted or Re-Newed RX: Transmitted to Pharmacy Final Diagnosis PPD 1 NVD Problems Reviewed?: Yes Consults/Follow Up Additional Follow Up: Yes Orders/Referrals Dr. Harper in 6 weeks Activity Activity: Activity as Tolerated Driving Instructions: No Driving for 1 Week NO SMOKING: NO SMOKING Nothing Inside Vagina: No Douching, No [place], No Tampons Diet Discharge Diet: No Restrictions Symptoms to Report to : Bleeding Excessive, Pain Increased, Fever Over 101 Degrees F, Vaginal Bleeding Increase, Questions/Concerns For Any Problems or Questions: Contact Your Physician VALENTINO HARPER DO Oct 02, 2022 18:56
[2022-10-02] MEDS ORDERED: ACHD5005 PO (18:58)
[2022-10-02] MEDS ORDERED: IBUP-844 PO (18:58)
[2022-10-02] MEDS ORDERED: DOCU100C37 PO (18:58)
[2022-10-02] MEDS ORDERED: NALOXONE 0.4 MG/ML 1 ML (NARCAN) VIAL IV PRN (19:00)
[2022-10-02] MEDS ORDERED: WITCH HAZEL(TUCKS) 40 EA JAR TOP PRN (19:00)
[2022-10-02] MEDS ORDERED: MEASLES,MUMPS,RUBELLA 1 EA INJ SQ ONE (19:00)
[2022-10-02] MEDS ORDERED: DIBUCAINE 1% OINTMENT 28 GM TUBE TOP PRN (19:00)
[2022-10-02] MEDS ORDERED: BENZOCAINE/MENTHOL (DERMOPLAST) 56 ML CAN TP PRN (19:00)
[2022-10-02] MEDS ORDERED: TETANUS,DIPTH,PERTUSS P/F (BOOSTRIX) 0.5 ML VIAL IM ONE (19:00)
[2022-10-02] MEDS ORDERED: OXYTOCIN PRE-MIX DRIP 500 ML IV SCH (19:00)
[2022-10-02] MEDS ORDERED: HYDROcodone/APAP 5 MG/325 MG (LORTAB) TAB PO PRN (19:00)
[2022-10-02] MEDS: IBUPROFEN 600 MG (MOTRIN) TAB PO SCH (19:48)
[2022-10-02] MEDS ORDERED: CATHETER FLUSH 10 ML SYR IV SCH ×2 (22:00)
[2022-10-03 00:40] VITALS: BP 125/56
[2022-10-03] MEDS: DOCUSATE SODIUM 100 MG (COLACE) CAP PO SCH ×2 (00:43→08:54)
[2022-10-03] MEDS: IBUPROFEN 600 MG (MOTRIN) TAB PO SCH ×4 (00:43→18:15)
[2022-10-03 03:20] VITALS: BP 106/55
[2022-10-03 05:43] LABS: BASOPHILS # (AUTO) 0.1 10^3/uL (0.0-0.1); BASOPHILS % (AUTO) 0 % (0-10); EOSINOPHILS # (AUTO) 0.1 10^3/uL (0.0-0.3); EOSINOPHILS % (AUTO) 1 % (0-10); HEMATOCRIT 38 % (35-52); HEMOGLOBIN 12.8 g/dL (11.5-16.0); LYMPHOCYTES # (AUTO) 2.3 10^3/uL (1.0-4.0); LYMPHOCYTES % (AUTO) 16 % (12-44); MEAN CORPUSCULAR HEMOGLOBIN 29 pg (25-34); MEAN CORPUSCULAR HGB CONC 34 g/dL (32-36); MEAN CORPUSCULAR VOLUME 86 fL (80-99); MEAN PLATELET VOLUME 10.5 fL (9.0-12.2); MONOCYTES # (AUTO) 0.8 10^3/uL (0.0-1.0); MONOCYTES % (AUTO) 6 % (0-12); NEUTROPHILS # (AUTO) 10.7 10^3/uL (1.8-7.8); NEUTROPHILS % (AUTO) 76 % (42-75); PLATELET COUNT 148 10^3/uL (130-400)
[2022-10-03] MEDS ORDERED: PRENATAL VITAMIN 1 EA TAB PO SCH (07:00)
[2022-10-03] MEDS ORDERED: FERROUS SULF 325 MG (IRON) TAB PO SCH (09:00)
[2022-10-03 09:21] VITALS: BP 113/59
--- NOTE | 2022-10-03 10:27 | Postpartum Progress Note ---
Note Note Day # 1 Subjective: Patient is without complaints. Ambulating, voiding. Tolerating a regular diet without nausea or vomiting. Normal lochia. Pain is well controlled with oral pain medications. Physical Exam: General - Alert and oriented, no apparent distress Abdomen - Soft, appropriately tender to palpation, non-distended, fundus firm at umbilicus Extremities - no edema, negative Joshua's bilaterally Assessment: Post- day # 1, status post vaginal delivery Recovering well, hemodynamically stable Acute blood loss anemia Plan: Routine care. Encourage breast feeding. Encourage ambulation. Ferrous sulfate supplementation. Plan for discharge today Vitals - Labs Vital Signs - I&O Vital Signs Date Time Temp Pulse Resp B/P (MAP) Pulse Ox O2 Delivery O2 Flow Rate FiO2 10/03/22 09:21 36.8 70 16 113/59 (77) 100 Room Air 10/03/22 03:20 36.2 78 16 106/55 (72) 99 Room Air 10/03/22 00:40 36.9 56 20 125/56 (79) 100 Room Air 10/02/22 20:23 37.2 79 18 106/55 (72) 98 Room Air 10/02/22 19:40 85 124/56 (78) 10/02/22 19:25 90 18 131/59 (83) Room Air 10/02/22 19:00 37.7 80 18 124/56 (78) 10/02/22 18:45 78 18 142/65 (90) 10/02/22 16:30 37.2 71 18 98 10/02/22 15:20 80 18 98 Room Air 10/02/22 13:55 37.3 101 18 120/66 (84) 98 10/02/22 13:50 37.3 101 18 98 Room Air I & O 10/03/22 07:00 Intake Total 2500 ml Balance 2500 ml Labs Laboratory Tests 10/02/22 14:00: Urine Color YELLOW, Urine Clarity SL CLOUDY, Urine pH 6.0, Urine Specific [place] 1.025H, Urine Protein NEGATIVE, Urine Glucose (UA) NEGATIVE, Urine Ketones TRACEH, Urine Nitrite NEGATIVE, Urine Bilirubin NEGATIVE, Urine Urobilinogen 0.2, Urine Leukocyte Esterase NEGATIVE, Urine RBC (Auto) NEGATIVE, Urine RBC NONE, Urine WBC NONE, Urine Squamous Epithelial Cells NONE, Urine Crystals NONE, Urine Bacteria NEGATIVE, Urine Casts NONE, Urine Mucus NEGATIVE, Urine Culture Indicated NO 10/02/22 14:10: White Blood Count 11.2H, Red Blood Count 4.63, Hemoglobin 13.6, Hematocrit 39, Mean Corpuscular Volume 85, Mean Corpuscular Hemoglobin 29, Mean Corpuscular Hemoglobin Concent 35, Red Cell Distribution Width 13.6, Platelet Count 174, Mean Platelet Volume 10.4, Immature Granulocyte % (Auto) 1, Neutrophils (%) (Auto) 79H, Lymphocytes (%) (Auto) 14, Monocytes (%) (Auto) 6, Eosinophils (%) (Auto) 1, Basophils (%) (Auto) 0, Neutrophils # (Auto) 8.8H, Lymphocytes # (Auto) 1.5, Monocytes # (Auto) 0.7, Eosinophils # (Auto) 0.1, Basophils # (Auto) 0.1, Immature Granulocyte # (Auto) 0.1, Syphilis Serology Non-Reactive 10/03/22 05:12: White Blood Count 14.0H, Red Blood Count 4.39, Hemoglobin 12.8, Hematocrit 38, Mean Corpuscular Volume 86, Mean Corpuscular Hemoglobin 29, Mean Corpuscular Hemoglobin Concent 34, Red Cell Distribution Width 13.5, Platelet Count 148, Mean Platelet Volume 10.5, Immature Granulocyte % (Auto) 1, Neutrophils (%) (Auto) 76H, Lymphocytes (%) (Auto) 16, Monocytes (%) (Auto) 6, Eosinophils (%) (Auto) 1, Basophils (%) (Auto) 0, Neutrophils # (Auto) 10.7H, Lymphocytes # (Auto) 2.3, Monocytes # (Auto) 0.8, Eosinophils # (Auto) 0.1, Basophils # (Auto) 0.1, Immature Granulocyte # (Auto) 0.1 SOPHIA PEREZ APRN Oct 03, 2022 10:27
[2022-10-03 12:43] VITALS: BP 113/61
[2022-10-03 16:59] VITALS: BP 117/69
[2022-10-03 20:20] VITALS: BP 132/72
== END 2022-10-03 20:30 | disposition home or self-care (01) | DRG 806 ==
LOC: LDRP 14:00
PROVIDERS: ADMIT Obstetrics & Gynecology; ATTEND Obstetrics & Gynecology
PROC: 10E0XZZ Delivery of Products of Conception, External Approach (ICD-10-PCS; principal; 2022-10-02)
PROC: 10907ZC Drainage of Amniotic Fluid, Therapeutic from Products of Conception, Via Natural or Artificial Opening (ICD-10-PCS; 2022-10-02)
DX: O90.81 Anemia of the puerperium (principal); D62 Acute posthemorrhagic anemia; Z37.0 Single live birth; Z3A.39 39 weeks gestation of pregnancy
CPT/HCPCS: 36415; 81000; 85025; 86780; 86850; 86900; 86901